=== PATIENT | male | born 1940 | race Caucasian/White ===

== ENCOUNTER 2019-07-06 07:40 | Inpatient (IN) | payer MEDICARE, BC ==
[~2019-07-06] VITALS: Ht 165.1 cm; Wt 70.5 kg
[~2019-07-06 07:40] MED LIST: AMIO200T61 PO; ASPI-1265 PO; BUDE10.23 IH; COR3.125T PO; CYAN1LOZ SL; FERR325T28 PO; GABA-338 PO; LORA0.5T PO; SIMV10TA2 PO; TRAM50TA2 PO
--- NOTE | 2019-07-06 07:58 | NUR ---
When getting patient back to room, transfered patient from wheelchair to bed, patient was sitting on the edge of the bed and passed out for approx. 5 seconds. Assisted patient to a laying position on the gurney. Patient denies CP still at this time, but c/o dizziness and SOB at this time. Cary VAZQUEZ and Dr. Martini aware of syncopal episode.
[2019-07-06 08:15] LABS: BASOPHILS % (AUTO) 0.2 % (0-1); EOSINOPHILS # (AUTO) 0.1 X10'3 (0-0.9); EOSINOPHILS % (AUTO) 0.6 % (0-6); HEMATOCRIT 40.5 % (42.0-52.0); HEMOGLOBIN 13.9 g/dl (14.0-17.9); LYMPHOCYTES # (AUTO) 0.4 X10'3 (1.1-4.8); LYMPHOCYTES % (AUTO) 2.8 % (21-51); MEAN CORPUSCULAR HEMOGLOBIN 28.6 PG (27.0-31.0); MEAN CORPUSCULAR HGB CONC 34.4 g/dL (33.0-36.5); MEAN CORPUSCULAR VOLUME 83.3 FL (78-98); MEAN PLATELET VOLUME 9.3 FL (7.4-10.4); MONOCYTES # (AUTO) 1.2 X10'3 (0-0.9); MONOCYTES % (AUTO) 9.2 % (2-12); NEUTROPHILS # (AUTO) 11.3 X10'3 (1.8-7.7); NEUTROPHILS % (AUTO) 87.2 % (42-75); PLATELET COUNT 183 X10'3 (140-440); RED BLOOD COUNT 4.87 X10'6 (4.70-6.10); RED CELL DISTRIBUTION WIDTH 14.8 % (11.5-14.5); WHITE BLOOD COUNT 12.9 X10'3 (4.5-11.0)
[2019-07-06 08:33] LABS: ALANINE AMINOTRANSFERASE 63 U/L (12-78); ALBUMIN/GLOBULIN RATIO 0.7 (1.1-1.5); ALKALINE PHOSPHATASE 138 IU/L (46-116); ANION GAP 11 (8-16); ASPARTATE AMINO TRANSFERASE 62 U/L (10-37); BILIRUBIN,TOTAL 1.8 MG/DL (0.1-1.0); BLOOD UREA NITROGEN 27 MG/DL (7-18); BUN/CREATININE RATIO 17.5 (5.4-32.0); CALCIUM 8.6 MG/DL (8.5-10.1); CHLORIDE 96 MMOL/L (99-107); CREATININE 1.54 MG/DL (0.60-1.10); GLUCOSE 114 MG/DL (70-104); POTASSIUM 3.3 MMOL/L (3.5-5.1); SODIUM 132 MMOL/L (135-145); TOTAL CARBON DIOXIDE 25.3 MMOL/L (24-32); TOTAL PROTEIN 7.1 G/DL (6.4-8.2); eGFR 44 ML/MIN
[2019-07-06] MEDS ORDERED: normal saline 1000ML IV soln IVB ONE (09:05)
[2019-07-06] MEDS ORDERED: iohexol 350MG/ML 100ml bottle IV ONE (09:17)
[2019-07-06] MEDS ORDERED: potassium Cl 10 mEq/100mL bag IV ONE (11:40)
[2019-07-06] MEDS ORDERED: mag hydrox/Alum hydrox/simeth 30ml oral suspension PO PRN (12:45)
[2019-07-06] MEDS ORDERED: potassium CL 10mEq/100ml bag 100 ML IV PRN ×2 (12:45)
[2019-07-06] MEDS ORDERED: magnesium 2GM in 50ml NS 50 ML IV PRN (12:45)
[2019-07-06] MEDS ORDERED: acetaminophen 325mg tablet PO PRN ×2 (12:45)
[2019-07-06] MEDS ORDERED: morphine 2 MG/ML inj. syringe IV PRN (12:45)
[2019-07-06] MEDS ORDERED: potassium Cl 20 mEq SR tablet PO PRN (12:45)
[2019-07-06] MEDS ORDERED: magnesium 4gm in 100ml NS 100 ML IV PRN (12:45)
[2019-07-06] MEDS ORDERED: ondansetron/PF 4mg/2ml inj IV PRN (12:45)
[2019-07-06] MEDS ORDERED: HYDROcodone/acetaminophen 5mg/325mg tablet PO PRN (12:45)
[2019-07-06] MEDS ORDERED: magnesium Cl slow-release 64mg tablet PO PRN (12:45)
[2019-07-06] MEDS: albuterol 2.5 MG/3 ML nebule NEB SCH ×2 (12:55→15:00)
[2019-07-06] MEDS: CefTRIAXone 2gm/D5W 50ml 50 ML IV SCH (13:26)
--- NOTE | 2019-07-06 13:29 | NUR ---
Received report from Cary VAZQUEZ, all questions answered. Patient will be admitted to room 5237X
--- NOTE | 2019-07-06 13:30 | NUR ---
Patient admitted to room 3026B. Oriented to room, tele monitor applied, vital signs taken. BRANDON 100/64, HR 98, O2 96% on 2 L, pain 0/10. 2 RN skin assessment done. Skin tear present on right forearm, pictures taken and placed in chart and optifoam applied. Will continue to monitor
[2019-07-06 13:52] VITALS: BP 100/64
[2019-07-06] MEDS: potassium Cl 20 mEq SR tablet PO PRN (14:53)
[2019-07-06 15:00] VITALS: BP 107/65
--- NOTE | 2019-07-06 15:50 | NUR ---
appliance repair technician reported HR jump to 130's, did not sustain. Paged Dr Huff to make aware PAGER ID: [phone] MESSAGE: Tiffanie jones [phone]. Dorcas Vigil [id number]. FYI Pt heart rate increased to 130's. Did not sustain, back down to 108. Still in A-fib.
[2019-07-06 18:00] VITALS: BP 131/80
--- NOTE | 2019-07-06 18:34 | NUR ---
Problems reprioritized. Patient report given, questions answered & plan of care reviewed with Kim VAZQUEZ. Pt stable at time of shift change
--- NOTE | 2019-07-06 18:35 | NUR ---
Patient in room PCU 3026. I have received report from GEORGE Moreno and had the opportunity to ask questions and assume patient care. Patient is sleeping comfortably at this time, I will continue to monitor.
[2019-07-06] MEDS: docusate sod 100mg capsule PO SCH (19:38)
[2019-07-06] MEDS: heparin, porcine 5000 units/ml vial SQ SCH (19:39)
[2019-07-06] MEDS: furosemide 40mg/4ml inj IV SCH (19:40)
[2019-07-06] MEDS: amiodarone 200mg tablet PO SCH (20:00)
[2019-07-06] MEDS: carVEDilol 3.125mg tablet PO SCH (20:00)
[2019-07-06] MEDS: K and/or MAG REPLACEMENT MC SCH (20:00)
--- NOTE | 2019-07-06 20:40 | NUR ---
Called Dr. Roth as Med Rec not addressed. He told me to call Dr. Huff as she admitted him, but he did ok me to start Amiodarone 200mg BID and Coreg 3.125 BID anjelica
[2019-07-06] MEDS: atorvastatin 10mg tablet PO SCH (21:00)
[2019-07-06] MEDS: gabapentin 300mg capsule PO SCH (21:00)
[2019-07-06] MEDS: temazepam 15mg capsule PO PRN (21:01)
[2019-07-06 22:00] VITALS: BP 94/66
[2019-07-07] VITALS (8 sets, daily range): BP systolic 87–114; BP diastolic 60–72
[2019-07-07 05:31] LABS: BASOPHILS # (AUTO) 0.1 X10'3 (0-0.2); BASOPHILS % (AUTO) 0.4 % (0-1); EOSINOPHILS % (AUTO) 0.3 % (0-6); HEMATOCRIT 39.4 % (42.0-52.0); HEMOGLOBIN 13.5 g/dl (14.0-17.9); LYMPHOCYTES # (AUTO) 0.9 X10'3 (1.1-4.8); LYMPHOCYTES % (AUTO) 5.5 % (21-51); MEAN CORPUSCULAR HEMOGLOBIN 28.6 PG (27.0-31.0); MEAN CORPUSCULAR HGB CONC 34.3 g/dL (33.0-36.5); MEAN CORPUSCULAR VOLUME 83.5 FL (78-98); MEAN PLATELET VOLUME 9.6 FL (7.4-10.4); MONOCYTES # (AUTO) 1.8 X10'3 (0-0.9); MONOCYTES % (AUTO) 10.9 % (2-12); NEUTROPHILS # (AUTO) 13.9 X10'3 (1.8-7.7); NEUTROPHILS % (AUTO) 82.9 % (42-75); PLATELET COUNT 185 X10'3 (140-440); RED BLOOD COUNT 4.72 X10'6 (4.70-6.10); RED CELL DISTRIBUTION WIDTH 14.9 % (11.5-14.5); WHITE BLOOD COUNT 16.7 X10'3 (4.5-11.0)
[2019-07-07 05:41] LABS: ALANINE AMINOTRANSFERASE 51 U/L (12-78); ALBUMIN 2.7 G/DL (3.4-5.0); ALBUMIN/GLOBULIN RATIO 0.7 (1.1-1.5); ALKALINE PHOSPHATASE 136 IU/L (46-116); ANION GAP 7 (8-16); ASPARTATE AMINO TRANSFERASE 42 U/L (10-37); BILIRUBIN,TOTAL 1.2 MG/DL (0.1-1.0); BLOOD UREA NITROGEN 30 MG/DL (7-18); BUN/CREATININE RATIO 18.5 (5.4-32.0); CALCIUM 8.3 MG/DL (8.5-10.1); CHLORIDE 98 MMOL/L (99-107); CHOL/HDL RATIO 3.5 (0.00-4.99); CHOLESTEROL 110 MG/DL (0-200); CREATININE 1.62 MG/DL (0.60-1.10); GLUCOSE 91 MG/DL (70-104); HDL CHOLESTEROL 31 MG/DL (35-60); LDL CHOLESTEROL 67 MG/DL (50-100); MAGNESIUM 2.2 MG/DL (1.5-2.4); POTASSIUM 3.8 MMOL/L (3.5-5.1); SODIUM 134 MMOL/L (135-145); TOTAL CARBON DIOXIDE 29.4 MMOL/L (24-32); TOTAL PROTEIN 6.5 G/DL (6.4-8.2); TRIGLYCERIDES 86 MG/DL (20-135); eGFR 41 ML/MIN
--- NOTE | 2019-07-07 06:07 | NUR ---
Problems reprioritized. Patient report given, questions answered & plan of care reviewed with GEORGE Moreno.
--- NOTE | 2019-07-07 06:32 | NUR ---
Patient in room PCU 3022X. I have received report from Kim VAZQUEZ and had the opportunity to ask questions and assume patient care.
[2019-07-07] MEDS ORDERED: FURO40TA4 PO (06:53)
[2019-07-07] MEDS ORDERED: WARF4TAB69 PO (06:54)
[2019-07-07] MEDS ORDERED: CARV6.253 PO (06:56)
[2019-07-07] MEDS ORDERED: HYDR-4353 PO (06:58)
[2019-07-07] MEDS ORDERED: NITR0.4T48 SL (06:58)
[2019-07-07] MEDS ORDERED: DIGO125T97 PO (06:59)
[2019-07-07] MEDS: albuterol 2.5 MG/3 ML nebule NEB SCH ×5 (07:18→23:46)
[2019-07-07] MEDS: furosemide 40mg/4ml inj IV SCH ×2 (07:43→20:31)
[2019-07-07] MEDS: docusate sod 100mg capsule PO SCH ×2 (07:44→20:30)
[2019-07-07] MEDS: ferrous sulfate 325mg tablet PO SCH ×2 (07:44→07:48)
[2019-07-07] MEDS: heparin, porcine 5000 units/ml vial SQ SCH ×2 (07:44→20:32)
[2019-07-07] MEDS: gabapentin 300mg capsule PO SCH ×3 (07:44→20:30)
[2019-07-07] MEDS: carVEDilol 3.125mg tablet PO SCH ×2 (07:44→20:45)
[2019-07-07] MEDS: amiodarone 200mg tablet PO SCH ×2 (07:44→20:30)
[2019-07-07] MEDS: K and/or MAG REPLACEMENT MC SCH ×2 (07:53→20:00)
[2019-07-07] MEDS ORDERED: amiodarone 200mg tablet PO SCH (08:00)
[2019-07-07] MEDS ORDERED: methylPREDNISolone sod succ 125mg/2ml vial IV SCH (08:00)
[2019-07-07] MEDS ORDERED: carVEDilol 3.125mg tablet PO SCH (08:00)
[2019-07-07] MEDS: methylPREDNISolone sod succ/PF 40mg inj. IV SCH ×3 (09:05→20:30)
[2019-07-07] MEDS: azithromycin 250mg tablet PO SCH (09:11)
[2019-07-07] MEDS: lactobacillus rhamnosus 10,000 MMU CELLS/CAPSULE PO SCH ×2 (09:15→20:30)
[2019-07-07] MEDS: CefTRIAXone 2gm/D5W 50ml 50 ML IV SCH (13:12)
--- NOTE | 2019-07-07 18:27 | NUR ---
Problems reprioritized. Patient report given, questions answered & plan of care reviewed with Brionna VAZQUEZ. Pt stable at change of shift
[2019-07-07] MEDS: atorvastatin 10mg tablet PO SCH (20:30)
[2019-07-07] MEDS: temazepam 15mg capsule PO PRN (21:39)
--- NOTE | 2019-07-08 01:03 | NUR ---
Patient in room PCU 3026. I have received report from GEORGE Moreno and had the opportunity to ask questions and assume patient care.
[2019-07-08] MEDS: methylPREDNISolone sod succ/PF 40mg inj. IV SCH ×4 (01:20→20:56)
[2019-07-08 03:00] VITALS: BP 101/59
[2019-07-08] MEDS: albuterol 2.5 MG/3 ML nebule NEB SCH ×6 (03:14→23:00)
--- NOTE | 2019-07-08 06:15 | NUR ---
Patient in room PCU 3024p. I have received report from GEORGE Staton and had the opportunity to ask questions and assume patient care.
[2019-07-08 06:23] LABS: BASOPHILS % (AUTO) 0.2 % (0-1); EOSINOPHILS % (AUTO) 0 % (0-6); HEMATOCRIT 36.1 % (42.0-52.0); HEMOGLOBIN 12.4 g/dl (14.0-17.9); LYMPHOCYTES # (AUTO) 0.6 X10'3 (1.1-4.8); LYMPHOCYTES % (AUTO) 5.7 % (21-51); MEAN CORPUSCULAR HEMOGLOBIN 28.4 PG (27.0-31.0); MEAN CORPUSCULAR HGB CONC 34.4 g/dL (33.0-36.5); MEAN CORPUSCULAR VOLUME 82.5 FL (78-98); MEAN PLATELET VOLUME 9.8 FL (7.4-10.4); MONOCYTES # (AUTO) 0.7 X10'3 (0-0.9); MONOCYTES % (AUTO) 6.4 % (2-12); NEUTROPHILS # (AUTO) 9.6 X10'3 (1.8-7.7); NEUTROPHILS % (AUTO) 87.7 % (42-75); PLATELET COUNT 187 X10'3 (140-440); RED BLOOD COUNT 4.37 X10'6 (4.70-6.10); RED CELL DISTRIBUTION WIDTH 15.3 % (11.5-14.5); WHITE BLOOD COUNT 10.9 X10'3 (4.5-11.0)
--- NOTE | 2019-07-08 06:23 | NUR ---
Problems reprioritized. Patient report given, questions answered & plan of care reviewed with GEORGE Alvarado.
[2019-07-08 06:43] LABS: ALANINE AMINOTRANSFERASE 47 U/L (12-78); ALBUMIN 2.5 G/DL (3.4-5.0); ALBUMIN/GLOBULIN RATIO 0.7 (1.1-1.5); ALKALINE PHOSPHATASE 132 IU/L (46-116); ANION GAP 9 (8-16); ASPARTATE AMINO TRANSFERASE 30 U/L (10-37); BILIRUBIN,TOTAL 0.5 MG/DL (0.1-1.0); BLOOD UREA NITROGEN 41 MG/DL (7-18); BUN/CREATININE RATIO 27.5 (5.4-32.0); CALCIUM 7.6 MG/DL (8.5-10.1); CHLORIDE 98 MMOL/L (99-107); CREATININE 1.49 MG/DL (0.60-1.10); GLUCOSE 140 MG/DL (70-104); MAGNESIUM 2.5 MG/DL (1.5-2.4); POTASSIUM 3.1 MMOL/L (3.5-5.1); SODIUM 133 MMOL/L (135-145); TOTAL CARBON DIOXIDE 26.3 MMOL/L (24-32); TOTAL PROTEIN 6.2 G/DL (6.4-8.2); eGFR 45 ML/MIN
[2019-07-08 07:00] VITALS: BP 143/83
--- NOTE | 2019-07-08 07:37 | NUR ---
MICRO LAB RESULTS TAKEN, REPORTED TO PRIMARY RN.
[2019-07-08] MEDS: docusate sod 100mg capsule PO SCH ×2 (08:00→20:55)
[2019-07-08] MEDS: ferrous sulfate 325mg tablet PO SCH (08:00)
[2019-07-08] MEDS: heparin, porcine 5000 units/ml vial SQ SCH ×2 (08:22→20:57)
[2019-07-08] MEDS: amiodarone 200mg tablet PO SCH ×2 (08:22→20:56)
[2019-07-08] MEDS: azithromycin 250mg tablet PO SCH (08:22)
[2019-07-08] MEDS: gabapentin 300mg capsule PO SCH ×3 (08:23→20:56)
[2019-07-08] MEDS: carVEDilol 3.125mg tablet PO SCH ×2 (08:23→20:56)
[2019-07-08] MEDS: lactobacillus rhamnosus 10,000 MMU CELLS/CAPSULE PO SCH ×2 (08:24→20:55)
[2019-07-08] MEDS: potassium Cl 20 mEq SR tablet PO PRN ×3 (08:26→18:41)
[2019-07-08] MEDS: furosemide 40mg/4ml inj IV SCH ×2 (08:26→20:56)
[2019-07-08] MEDS: K and/or MAG REPLACEMENT MC SCH ×2 (08:44→20:00)
[2019-07-08 11:00] VITALS: BP 100/63
[2019-07-08 11:12] LABS: CLARITY,URINE CLEAR (Clear); COLOR,URINE YELLOW (Yellow); GLUCOSE, URINE NEGATIVE (Neg); KETONES,URINE NEGATIVE (Neg); LEUKOCYTE ESTERASE ,URINE NEGATIVE (Neg); NITRITES, URINE NEGATIVE (Neg); OCCULT BLOOD,URINE NEGATIVE (Neg); PROTEIN,URINE NEGATIVE (Neg); UA COLLECTION TYPE CLN CATCH MIDSTREAM; UROBILINOGEN,URINE 0.2 E.U/dL (0.2-1.0)
[2019-07-08] MEDS: CefTRIAXone 2gm/D5W 50ml 50 ML IV SCH (12:44)
[2019-07-08 16:41] VITALS: BP 94/55
[2019-07-08 18:00] VITALS: BP 105/71
--- NOTE | 2019-07-08 18:00 | NUR ---
Spoke with Dr. Sprague, new order for Ativan 1mg PO q6 PRN for agitation and anxiety. Also, new order to d/c transfer order and keep patient on tele.
[2019-07-08] MEDS: LORazepam 1 MG tablet PO PRN (18:41)
[2019-07-08] MEDS: temazepam 15mg capsule PO PRN (20:56)
[2019-07-08] MEDS: atorvastatin 10mg tablet PO SCH (20:56)
[2019-07-08] MEDS ORDERED: warfarin 4mg tablet PO SCH (21:05)
--- NOTE | 2019-07-08 21:41 | NUR ---
Patient in room PCU 3026. I have received report from Jenny Mejia RN and had the opportunity to ask questions and assume patient care.
[2019-07-08 22:00] VITALS: BP 93/70
[2019-07-09] MEDS: methylPREDNISolone sod succ/PF 40mg inj. IV SCH ×4 (00:31→20:19)
[2019-07-09 02:00] VITALS: BP 77/54
[2019-07-09 06:00] VITALS: BP 104/53
--- NOTE | 2019-07-09 06:30 | NUR ---
Problems reprioritized. Patient report given, questions answered & plan of care reviewed with GEORGE GO.
--- NOTE | 2019-07-09 06:31 | NUR ---
Patient in room PCU 3026. I have received report from Brionna VAZQUEZ and had the opportunity to ask questions and assume patient care.
[2019-07-09] MEDS: albuterol 2.5 MG/3 ML nebule NEB SCH ×5 (07:30→23:28)
[2019-07-09 07:32] LABS: BASOPHILS % (AUTO) 0.1 % (0-1); EOSINOPHILS % (AUTO) 0 % (0-6); HEMATOCRIT 37.3 % (42.0-52.0); HEMOGLOBIN 12.8 g/dl (14.0-17.9); LYMPHOCYTES # (AUTO) 0.6 X10'3 (1.1-4.8); LYMPHOCYTES % (AUTO) 4.7 % (21-51); MEAN CORPUSCULAR HEMOGLOBIN 28.2 PG (27.0-31.0); MEAN CORPUSCULAR HGB CONC 34.4 g/dL (33.0-36.5); MEAN PLATELET VOLUME 9.5 FL (7.4-10.4); MONOCYTES # (AUTO) 0.8 X10'3 (0-0.9); MONOCYTES % (AUTO) 6.2 % (2-12); NEUTROPHILS # (AUTO) 11.7 X10'3 (1.8-7.7); PLATELET COUNT 240 X10'3 (140-440); RED BLOOD COUNT 4.55 X10'6 (4.70-6.10); RED CELL DISTRIBUTION WIDTH 15.2 % (11.5-14.5); WHITE BLOOD COUNT 13.1 X10'3 (4.5-11.0)
[2019-07-09 07:47] LABS: ALANINE AMINOTRANSFERASE 56 U/L (12-78); ALBUMIN 2.6 G/DL (3.4-5.0); ALBUMIN/GLOBULIN RATIO 0.7 (1.1-1.5); ALKALINE PHOSPHATASE 143 IU/L (46-116); ANION GAP 8 (8-16); ASPARTATE AMINO TRANSFERASE 38 U/L (10-37); BILIRUBIN,TOTAL 0.3 MG/DL (0.1-1.0); BLOOD UREA NITROGEN 50 MG/DL (7-18); BUN/CREATININE RATIO 33.6 (5.4-32.0); CALCIUM 8.2 MG/DL (8.5-10.1); CHLORIDE 99 MMOL/L (99-107); CREATININE 1.49 MG/DL (0.60-1.10); GLUCOSE 163 MG/DL (70-104); MAGNESIUM 2.8 MG/DL (1.5-2.4); POTASSIUM 3.8 MMOL/L (3.5-5.1); SODIUM 133 MMOL/L (135-145); TOTAL CARBON DIOXIDE 26.2 MMOL/L (24-32); TOTAL PROTEIN 6.4 G/DL (6.4-8.2); eGFR 45 ML/MIN
[2019-07-09] MEDS: furosemide 40mg/4ml inj IV SCH ×2 (08:00→20:00)
[2019-07-09] MEDS: K and/or MAG REPLACEMENT MC SCH ×2 (08:00→20:00)
[2019-07-09] MEDS: ferrous sulfate 325mg tablet PO SCH (08:00)
[2019-07-09] MEDS ORDERED: carvedilol 6.25mg tablet PO SCH (08:00)
[2019-07-09] MEDS: carVEDilol 3.125mg tablet PO SCH ×2 (08:00→20:16)
[2019-07-09] MEDS ORDERED: furosemide 40mg tablet PO SCH (08:00)
[2019-07-09] MEDS: digoxin 125mcg (0.125mg) tablet PO SCH (08:22)
[2019-07-09] MEDS: docusate sod 100mg capsule PO SCH ×2 (08:22→20:17)
[2019-07-09] MEDS: amiodarone 200mg tablet PO SCH ×2 (08:23→20:18)
[2019-07-09] MEDS: lactobacillus rhamnosus 10,000 MMU CELLS/CAPSULE PO SCH ×2 (08:23→20:21)
[2019-07-09] MEDS: gabapentin 300mg capsule PO SCH ×3 (08:23→20:17)
[2019-07-09] MEDS: azithromycin 250mg tablet PO SCH (08:24)
[2019-07-09] MEDS: heparin, porcine 5000 units/ml vial SQ SCH (08:25)
[2019-07-09 11:00] VITALS: BP 99/64
[2019-07-09] MEDS ORDERED: bisacodyl 10mg suppository rectal RC PRN (11:45)
[2019-07-09] MEDS: CefTRIAXone 2gm/D5W 50ml 50 ML IV SCH (11:55)
[2019-07-09 15:00] VITALS: BP 94/67
--- NOTE | 2019-07-09 18:49 | NUR ---
Problems reprioritized. Patient report given, questions answered & plan of care reviewed with Elvis RN. Patient stable at time of transfer of care.
[2019-07-09 19:00] VITALS: BP 125/68
--- NOTE | 2019-07-09 19:26 | NUR ---
Patient in room PCU 3026. I have received report from Samantha VAZQUEZ and had the opportunity to ask questions and assume patient care.
[2019-07-09] MEDS: atorvastatin 10mg tablet PO SCH (20:17)
[2019-07-09] MEDS: diatr meglu/diatrizoate 30ml oral sol.-(3 dose) bottle PO SCH (20:21)
[2019-07-09] MEDS: LORazepam 1 MG tablet PO PRN (20:37)
[2019-07-09] MEDS: temazepam 15mg capsule PO PRN (21:08)
[2019-07-09] MEDS ORDERED: magnesium hydroxide 30ml (MOM) UD suspension PO ONE (22:50)
[2019-07-09 23:00] VITALS: BP 123/60
[2019-07-10 03:00] VITALS: BP 125/64
[2019-07-10] MEDS: albuterol 2.5 MG/3 ML nebule NEB SCH ×3 (03:00→11:00)
[2019-07-10 05:30] LABS: ALANINE AMINOTRANSFERASE 80 U/L (12-78); ALBUMIN 2.6 G/DL (3.4-5.0); ALBUMIN/GLOBULIN RATIO 0.7 (1.1-1.5); ALKALINE PHOSPHATASE 136 IU/L (46-116); ANION GAP 5 (8-16); ASPARTATE AMINO TRANSFERASE 57 U/L (10-37); BILIRUBIN,TOTAL 0.3 MG/DL (0.1-1.0); BLOOD UREA NITROGEN 47 MG/DL (7-18); BUN/CREATININE RATIO 34.6 (5.4-32.0); CALCIUM 8.4 MG/DL (8.5-10.1); CHLORIDE 101 MMOL/L (99-107); CREATININE 1.36 MG/DL (0.60-1.10); GLUCOSE 120 MG/DL (70-104); MAGNESIUM 3.1 MG/DL (1.5-2.4); POTASSIUM 4.1 MMOL/L (3.5-5.1); SODIUM 134 MMOL/L (135-145); TOTAL CARBON DIOXIDE 28.1 MMOL/L (24-32); TOTAL PROTEIN 6.1 G/DL (6.4-8.2); eGFR 50 ML/MIN
[2019-07-10 05:34] LABS: BASOPHILS % (AUTO) 0.1 % (0-1); EOSINOPHILS % (AUTO) 0 % (0-6); HEMOGLOBIN 12.4 g/dl (14.0-17.9); LYMPHOCYTES # (AUTO) 0.6 X10'3 (1.1-4.8); LYMPHOCYTES % (AUTO) 4.8 % (21-51); MEAN CORPUSCULAR HEMOGLOBIN 28.6 PG (27.0-31.0); MEAN CORPUSCULAR HGB CONC 34.4 g/dL (33.0-36.5); MEAN CORPUSCULAR VOLUME 83.2 FL (78-98); MEAN PLATELET VOLUME 9.4 FL (7.4-10.4); MONOCYTES # (AUTO) 0.8 X10'3 (0-0.9); NEUTROPHILS # (AUTO) 11.2 X10'3 (1.8-7.7); NEUTROPHILS % (AUTO) 89.1 % (42-75); PLATELET COUNT 237 X10'3 (140-440); RED BLOOD COUNT 4.33 X10'6 (4.70-6.10); RED CELL DISTRIBUTION WIDTH 15.1 % (11.5-14.5); WHITE BLOOD COUNT 12.6 X10'3 (4.5-11.0)
[2019-07-10 06:00] VITALS: BP 96/70
--- NOTE | 2019-07-10 06:18 | NUR ---
Problems reprioritized. Patient report given, questions answered & plan of care reviewed with Samantha Liang.
--- NOTE | 2019-07-10 06:22 | NUR ---
Patient in room PCU 3026. I have received report from Elvis VAZQUEZ and had the opportunity to ask questions and assume patient care.
[2019-07-10] MEDS: diatr meglu/diatrizoate 30ml oral sol.-(3 dose) bottle PO SCH ×2 (07:12→09:57)
[2019-07-10] MEDS: lactobacillus rhamnosus 10,000 MMU CELLS/CAPSULE PO SCH (07:14)
[2019-07-10] MEDS: docusate sod 100mg capsule PO SCH (07:15)
[2019-07-10] MEDS: methylPREDNISolone sod succ/PF 40mg inj. IV SCH (07:15)
[2019-07-10] MEDS: azithromycin 250mg tablet PO SCH (07:15)
[2019-07-10] MEDS: amiodarone 200mg tablet PO SCH (07:15)
[2019-07-10] MEDS: gabapentin 300mg capsule PO SCH (07:15)
[2019-07-10] MEDS: digoxin 125mcg (0.125mg) tablet PO SCH (07:19)
[2019-07-10] MEDS: ferrous sulfate 325mg tablet PO SCH (07:20)
[2019-07-10] MEDS: furosemide 40mg/4ml inj IV SCH (08:00)
[2019-07-10] MEDS: K and/or MAG REPLACEMENT MC SCH (08:00)
[2019-07-10] MEDS: carVEDilol 3.125mg tablet PO SCH (08:00)
[2019-07-10 08:13] LABS: PLATELET ESTIMATE NORMAL; TOTAL CELLS COUNTED 100
[2019-07-10 11:00] VITALS: BP 95/68
[2019-07-10] MEDS ORDERED: LACT1CAP26 PO (11:46)
[2019-07-10] MEDS: CefTRIAXone 2gm/D5W 50ml 50 ML IV SCH (11:46)
[2019-07-10] MEDS ORDERED: AZI25OT PO (11:46)
[2019-07-10] MEDS ORDERED: PRED10TA23 PO (11:46)
[2019-07-10] MEDS ORDERED: CEFD300C3 PO (11:46)
[2019-07-10] MEDS ORDERED: gabapentin 300mg capsule PO SCH (13:30)
--- NOTE | 2019-07-10 13:40 | NUR ---
Patient stable for discharge per MD orders. All discharge instructions reviewed with patient and . All questions answered. New prescriptions called into patient's preferred pharmacy. PIV and nuclear monitoring technician discontinued. All belongings collected and sent with patient. Patient left in private vehicle with . Patient wheeled down to lobby by primary RN.
== END 2019-07-10 13:40 | disposition home or self-care (01) | DRG 189 ==
LOC: ER 07:41 → ED HOLD 12:53 → PCU 3S 13:30
PROVIDERS: ADMIT Internal Medicine; ATTEND Family Medicine
DX: J96.20 Acute and chronic respiratory failure, unspecified whether with hypoxia or hypercapnia (principal); E87.1 Hypo-osmolality and hyponatremia; I13.0 Hypertensive heart and chronic kidney disease with heart failure and stage 1 through stage 4 chronic kidney disease, or unspecified chronic kidney disease; J44.1 Chronic obstructive pulmonary disease with (acute) exacerbation; I27.20 Pulmonary hypertension, unspecified; I48.91 Unspecified atrial fibrillation; N18.3 Chronic kidney disease, stage 3 (moderate); E78.00 Pure hypercholesterolemia, unspecified; E87.6 Hypokalemia; I25.10 Atherosclerotic heart disease of native coronary artery without angina pectoris; I50.9 Heart failure, unspecified; Z87.891 Personal history of nicotine dependence; K21.9 Gastro-esophageal reflux disease without esophagitis; G89.29 Other chronic pain; F41.9 Anxiety disorder, unspecified; F32.9 Major depressive disorder, single episode, unspecified; D64.9 Anemia, unspecified; E78.5 Hyperlipidemia, unspecified
CPT/HCPCS: 36415; 71045; 71275; 74176; 80053; 80061; 80162; 81003; 83605; 83735; 85025; 85610; 87040; 87081; 87502; 87503; 93005; 93308; 93880; 94640; 94760; 97116; 97161; 97530; 99285; G0378; J0696; J1644; J1940; J2920; J2930; J3480; Q9963; Q9967